=== PATIENT | male | born 1975 | race Caucasian/White ===

== ENCOUNTER 2019-03-04 14:23 | Inpatient (IN) | payer OTHER ==
[~2019-03-04] VITALS: Ht 177.8 cm; Wt 90.1 kg
[~2019-03-04 14:23] MED LIST: HYDROXYZINE PAM50 MG PO; NEURONTIN600 MG PO; ONDANSETRON HYDR4 M1 PO; QUETIAPINE FUMA25 M1 PO; SINEMET 25-100M1 TAB PO; ZOLOFT50 MG PO
[2019-03-04] MEDS ORDERED: GABAPENTIN800 MG PO (14:38)
[2019-03-04] MEDS ORDERED: SERTRALINE HYD100 MG PO (14:38)
[2019-03-04 15:50] VITALS: BP 141/78
--- NOTE | 2019-03-04 15:50 | NUR ---
43 year old MALE admitted to room # 526-1 for stabilization. 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 Compliant with admission procedure. Patient c/o anxiety, is unable to sit still, fidgity, restless and experiencing tremors during interview. See assessment forms for additional information about patient status.
--- NOTE | 2019-03-04 15:59 | NUR ---
PATIENT MEETS [facility]. CINA=16, CIWA=19. PATIENT WANTS TO FOLLOW UP WITH RESIDENTIAL TREATMENT AT ON LICENSE OF [facility] FOR HIS AFTERCARE PLAN. KANE LOPEZ B.A. GREENSKEEPER
[2019-03-04 16:00] VITALS: BP 125/79
[2019-03-04 16:14] LABS: BASO % 0.1 % (0.0-1.0); EOS # 0.2 10*3/uL (0.0-0.4); EOS % 1.8 % (1.0-4.0); HEMATOCRIT 43.3 % (42.0-52.0); HEMOGLOBIN 15.1 g/dl (14.0-18.0); LYMPH # 3.8 10*3/uL (1.3-4.4); LYMPH % 37.5 % (27.0-41.0); MEAN CELL VOLUME 92.1 fl (80.0-94.0); MEAN CORPUSCULAR HGB 32.1 pg (27.0-31.0); MEAN CORPUSCULAR HGB CONC 34.9 g/dl (33.0-37.0); MEAN PLATELET VOLUME 8.9 fl (9.6-12.3); MONO # 0.6 10*3/uL (0.1-1.0); MONO % 5.6 % (3.0-9.0); NEUT # 5.5 10*3/uL (2.3-7.9); NEUT % 54.7 % (47.0-73.0); PLATELET COUNT AUTOMATED 293 10*3/uL (130-400); RED CELL DISTRI WIDTH 13.1 % (0-14.5)
[2019-03-04 16:28] LABS: BILIRUBIN NEGATIVE (NEGATIVE); BLOOD NEGATIVE (NEGATIVE); CLARITY CLEAR (CLEAR); COLOR YELLOW (YELLOW); GLUCOSE NEGATIVE (NEGATIVE); KETONE NEGATIVE (NEGATIVE); LEUKO ESTERASE NEGATIVE (NEGATIVE); NITRITE NEGATIVE (NEGATIVE); PH 5.5 (5.0-9.0); SPECIFIC GRAVITY <= 1.005 (1.005-1.030); UROBILINOGEN 0.2 E.U./dl (0.2-1.0)
[2019-03-04 16:29] LABS: ALBUMIN 3.6 gm/dl (3.1-4.5); ALKALINE PHOSPHATASE 63 U/L (45-117); BUN 8 mg/dl (7-24); CHLORIDE 110 mmol/L (98-107); CREATININE 0.91 mg/dL (0.70-1.30); POTASSIUM 3.6 mmol/L (3.5-5.1); SGOT/AST 25 IU/L (3-35); SGPT/ALT 52 U/L (12-78); SODIUM 144 mmol/L (136-145); TOTAL PROTEIN 7.4 gm/dL (6.4-8.2)
[2019-03-04 16:32] LABS: ETHYL ALCOHOL < 3.0 mg/dl (<3); INTERNATIONAL NORM RATIO 0.8 (2.0-3.5)
[2019-03-04 16:37] LABS: EPITHELIAL CELLS 0-2
--- NOTE | 2019-03-04 16:45 | NUR ---
MEDICATED WITH PRN IV ATIVAN FOR TREMORS/ANXIETY, BENTYL AND ZOFRAN FOR ABDOMINAL CRAMPS AND NAUSEA, TYLENOL AND ROBAXIN FOR BODY ACHES AND MUSCLE CRAMPS, AND REQUIP FOR RESTLESS LEGS.
--- NOTE | 2019-03-04 17:35 | NUR ---
ADMINISTERED SCHEDULED LIBRIUM AND SUBUTEX FOR WITHDRAWAL SYMPTOMS, APPLIED NICOTINE PATCH FOR SMOKING CRAVINGS. ATIVAN, BENTYL, ZOFRAN, TYLENOL AND ROBAXIN, GIVEN EARLIER EFFECTIVE, LEGS REMAIN RESTLESS, REQUIP NOT EFFECTIVE.
[2019-03-04 20:00] VITALS: BP 129/83; BP 130/80
--- NOTE | 2019-03-04 21:02 | NUR ---
PATIENT C/O ANXIETY. TREMORS VISUALIZED AND PATIENT RESTLESS AND C/O BODY ACHES. VISTARIL AND TYLENOL ADMINISTERED PRESCRIBED. WILL MONITOR FOR EFFECTIVENESS.
--- NOTE | 2019-03-04 22:02 | NUR ---
PATIENT STILL C/O RESTLESSNESS, ANXIETY, AND BOSY ACHES. ROBAXIN, ATIVAN, AND BENTYL ADMINISTERED PRESCRIBED. WILL MONITOR FOR EFFECTIVENESS.
[2019-03-05] VITALS: BP 104/58
--- NOTE | 2019-03-05 02:19 | NUR ---
DR APPIAH CALLED AND MADE AWARE THAT A URINE DRUG WAS NOT SENT ON PATIENT ON ADMISSION AND PATIENT HAS ALREADY RECEIVED SUBUTEX AND LIBRIUM. NO NEW ORDERS RECEIVED.
--- NOTE | 2019-03-05 06:23 | NUR ---
MEDICATED WITH ROBAXIN, REQUIP AND VISTARIL PER PRN ORDER, SEE EMAR. FOR ANXIETY, RESTLESS LEGS AND MUSCLE ACHES. CALL LIGHT IN REACH.
--- NOTE | 2019-03-05 06:32 | NUR ---
PT REQUESTING ATIVAN, PT ANXIUOS AND SMALL TREMORS NOTED. MEDICATED WITH ATIVAN IV PER PRN ORDER, SEE EMAR. CALL LIGHT IN REACH.
[2019-03-05 12:00] VITALS: BP 112/77
[2019-03-05 14:42] LABS: URINE AMPHETAMINES < 1000 (1000ng/ml); URINE BARBITURATES < 200 (200ng/ml); URINE BENZODIAZEPINES > 200 (200ng/ml); URINE CANNABINOIDS (THC) < 50 (50ng/ml); URINE COCAINE < 300 (300ng/ml); URINE METHADONE < 300 (300ng/ml); URINE OPIATES < 300 (300ng/ml)
[2019-03-05 14:45] LABS: URINE PHENCYCLIDINE < 25 (25ng/ml)
--- NOTE | 2019-03-05 15:00 | NUR ---
ASSUMED CARE FOR THIS PT AT THIS TIME. NO C/O VOICED. CALL LIGHT IN REACH.
[2019-03-05 16:00] VITALS: BP 118/79
--- NOTE | 2019-03-05 16:22 | NUR ---
PATIENT WANTS TO FOLLOW UP WITH [facility] FOR INPATIENT TREATMENT. [facility] STAFF SENT ASSESSMENT TO FACILITY AND WAITING FOR APPROVAL AND BED AVAILABILITY. Manolo RANDOLPH A, SUSPECT ARTIST
--- NOTE | 2019-03-05 17:47 | NUR ---
PT VISIBLY SHAKING, VERY RESTLESS, C/O MUSCLE ACHES, AND RLS. MEDICATED W/PRN MEDS AT THIS TIME. WILL MONITOR FOR EFFECTIVENESS.
[2019-03-05 20:00] VITALS: BP 124/78
--- NOTE | 2019-03-05 23:22 | NUR ---
PATIENT ANXIOUS AND RESTLESS. MEDICATED WITH ATIVAN AND ROBAXIN PRESCRIBED.WILL MONITOR FOR EFFECTIVENESS.
[2019-03-06] VITALS: BP 128/74
--- NOTE | 2019-03-06 00:22 | NUR ---
PATIENT RESTING WITH EYES CLOSED. RESPIRATIONS EASY AND UNLABORED. CALL LIGHT WITHIN REACH.
--- NOTE | 2019-03-06 01:22 | NUR ---
24 HR chart check completed.
--- NOTE | 2019-03-06 02:20 | NUR ---
PATIENT RESTING WITH EYES CLOSED. RESPIRATIONS EASY AND UNLABORED.NO DISTRESS NOTED.TWITCHING OBSERVED DURING SLEEP. CALL LIGHT WITHIN REACH. WILL MONITOR.
--- NOTE | 2019-03-06 04:20 | NUR ---
IV started right forearm with #22 protective cath after 1 attempts. Site prepped with Chloroprep. Sterile dressing applied. Patient tolerated procedure well. MUSHTAQ CABRERA
--- NOTE | 2019-03-06 04:20 | NUR ---
IV NOT FLUSHING IN LEFT ARM. DISCONTINUED.
[2019-03-06 08:00] VITALS: BP 126/68
--- NOTE | 2019-03-06 10:33 | NUR ---
PT REQUESTED AND WAS MEDICATED WITH ATIVAN FOR C/O ANXIETY/RESTLESSNESS. CALL LIGHT IN REACH. WILL MONITOR.
--- NOTE | 2019-03-06 11:30 | NUR ---
PT STATES MEDICATION SOMEWHAT EFFECTIVE. PT WONDERING IN HALLS AND FREQUENTLY STOPPING AT THE NURSES STATION. WILL MONITOR
--- NOTE | 2019-03-06 11:55 | NUR ---
PT REQUESTED AND WAS MEDICATED WITH ROBAXIN AND BENTYL FOR C/O MUSCLE ACHES AND STOMACH CRAMPING. WILL MONITOR
[2019-03-06 12:00] VITALS: BP 121/64
--- NOTE | 2019-03-06 13:00 | NUR ---
Patient resting. Responding to PRN medications with fewer complaints. call light in reach. will monitor
--- NOTE | 2019-03-06 13:50 | NUR ---
pt requested and was medicated with Vistiril for c/o anxiety. call light in [facility]. will monitor
--- NOTE | 2019-03-06 15:07 | NUR ---
PATIENT IS ACCEPTED TO [facility] FOR RESIDENTIAL TREATMENT. THEY HAVE A BED AVAILABLE FOR HIM ON AT 1:00PM. PATIENT REPORTS THAT HE HAS TRANSPORTATION TO FACILITY. KANE LOPEZ B.A. EMPLOYMENT MANAGER
[2019-03-06 16:00] VITALS: BP 122/90
--- NOTE | 2019-03-06 16:14 | NUR ---
PT MEDICATED WITH ATIVAN FOR C/O ANXIETY AND RESTLESSNESS. CALL LIGHT IN REACH. WILL MONITOR
--- NOTE | 2019-03-06 16:30 | NUR ---
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 HR LOW 100'S PER 4PM VITALS. HE STATES TO KEEP MONITORING HEART RATE AND KEEP ASKING TO REAPPLY MONITOR.
[2019-03-06 20:00] VITALS: BP 124/88
--- NOTE | 2019-03-06 20:00 | NUR ---
AMBULATING HALLWAY. STAGGERS OCCASIONALLY. REORIENTED AND ENCOURAGED TO RETURN TO ROOM. WILL MONITOR
--- NOTE | 2019-03-06 21:09 | NUR ---
Patient displaying withdrawal symptoms, including: irritability, anxiousness, restlessness and agitation, complicated by impulsive behavior. Scheduled/PRN medications provided, SEE EMAR. Will continue to monitor medication effectiveness.
--- NOTE | 2019-03-06 22:00 | NUR ---
Patient resting. Responding to scheduled medications with fewer complaints of pain and anxiety.
--- NOTE | 2019-03-06 22:58 | NUR ---
MEDICATED WITH ATIVAN IV PER PRN ORDER FOR ANXIETY/RESTLESSNESS. CALL LIGHT IN REACH.
--- NOTE | 2019-03-06 23:39 | NUR ---
24 HR chart check completed.
[2019-03-07] VITALS: BP 118/73
--- NOTE | 2019-03-07 01:19 | NUR ---
Patient displaying withdrawal symptoms, including: irritability, anxiousness, restlessness and agitation, complicated by impulsive behavior. Will continue to monitor medication effectiveness.
--- NOTE | 2019-03-07 03:00 | NUR ---
Patient SLEEPING. Responding to scheduled medications with fewer complaints of pain and anxiety.
--- NOTE | 2019-03-07 06:30 | NUR ---
REQUESTED AND RECEIVED NORCO PER PRN ORDER FOR COMPLAINTS OF RIGHT HIP PAIN RATING A 5. IV FLUIDS MAINTAINED. CALL LIGHT WITHIN REACH. WILL MONITOR FOR EFFECTIVENESS
[2019-03-07 08:00] VITALS: BP 133/80
--- NOTE | 2019-03-07 10:00 | NUR ---
DR RAMIREZ NOTIFIED PT STILL REFUSING TO WEAR EFFICIENCY MINER BLASTING
--- NOTE | 2019-03-07 10:26 | NUR ---
PATIENT COMPLAINED OF FEELING ANXIOUS. VISTARIL GIVEN PER PATIENT REQUEST. WILL MONITOR FOR EFFECTIVENESS.
--- NOTE | 2019-03-07 11:48 | NUR ---
PATIENT STATED THAT VISTARIL WAS NOT EFFECTIVE. STILL C/O ANXIETY. ORDERED ATIVAN.
[2019-03-07 12:00] VITALS: BP 139/88
--- NOTE | 2019-03-07 14:36 | NUR ---
PATIENT IS GOING TO [facility]. [facility]SPORTATION FOR HIM THROUGH HIS INSURANCE. PATIENT AGREES AND UNDERSTANDS HIS AFTERCARE PLAN. KANE LOPEZ B.A. COVERSTITCH ELASTIC ATTACHER
[2019-03-07] MEDS ORDERED: ATARAX,VISTARIL50 MG PO (14:44)
[2019-03-07] MEDS ORDERED: ROPINIROLE HYD0.5 MG PO (14:44)
[2019-03-07] MEDS ORDERED: METHOCARBAMOL750 M1 PO (14:44)
--- NOTE | 2019-03-07 14:57 | NUR ---
Discharge instructions reviewed with patient/family. Patient receptive and verbalizes understanding. Follow-up care arranged. Written instructions given to patient/family. KLEBER TRUONG
== END 2019-03-07 14:57 | disposition home or self-care (01) | DRG 773 ==
LOC: 5E 14:23
PROVIDERS: Registered Nurse; ADMIT Internal Medicine
DX: F11.23 Opioid dependence with withdrawal (principal); E44.0 Moderate protein-calorie malnutrition; F10.239 Alcohol dependence with withdrawal, unspecified; F32.9 Major depressive disorder, single episode, unspecified; B19.20 Unspecified viral hepatitis C without hepatic coma; G62.9 Polyneuropathy, unspecified; F41.9 Anxiety disorder, unspecified; Z87.891 Personal history of nicotine dependence; Z79.899 Other long term (current) drug therapy; Z71.6 Tobacco abuse counseling; Z68.28 Body mass index [BMI] 28.0-28.9, adult

== ENCOUNTER 2020-01-20 10:08 | Inpatient (IN) | payer OTHER ==
[~2020-01-20] VITALS: Ht 177.8 cm; Wt 96.8 kg
[~2020-01-20 10:08] MED LIST changes: +ATARAX,VISTARIL50 MG PO; +GABAPENTIN800 MG PO; +METHOCARBAMOL750 M1 PO; +ROPINIROLE HYD0.5 MG PO; +SERTRALINE HYD100 MG PO
[2020-01-20 10:16] VITALS: BP 110/68
[2020-01-20 10:47] LABS: BASO % 0.2 % (0.0-1.0); EOS # 0.3 10*3/uL (0.0-0.4); EOS % 2.7 % (1.0-4.0); LYMPH # 4.6 10*3/uL (1.3-4.4); LYMPH % 47.6 % (27.0-41.0); MEAN CELL VOLUME 91.5 fl (80.0-94.0); MEAN CORPUSCULAR HGB 31.6 pg (27.0-31.0); MEAN CORPUSCULAR HGB CONC 34.5 g/dl (33.0-37.0); MONO # 0.8 10*3/uL (0.1-1.0); MONO % 8.3 % (3.0-9.0); NEUT # 3.9 10*3/uL (2.3-7.9); NEUT % 41.1 % (47.0-73.0); PLATELET COUNT AUTOMATED 263 10*3/uL (130-400); RED BLOOD COUNT 4.81 10*6/uL (4.50-5.90); RED CELL DISTRI WIDTH 12.9 % (0-14.5); WHITE BLOOD COUNT 9.6 10*3/uL (4.8-10.8)
[2020-01-20 11:01] LABS: ALBUMIN 3.8 gm/dl (3.1-4.5); ALKALINE PHOSPHATASE 80 U/L (45-117); BUN 14 mg/dl (7-24); CHLORIDE 104 mmol/L (98-107); CREATININE 1.05 mg/dL (0.70-1.30); SGOT/AST 24 IU/L (3-35); SGPT/ALT 43 U/L (12-78); SODIUM 137 mmol/L (136-145); TOTAL PROTEIN 7.7 gm/dL (6.4-8.2)
[2020-01-20 11:03] LABS: ACETAMINOPHEN (TYLENOL) < 5.0 ug/ml (10-30)
--- NOTE | 2020-01-20 11:15 | NUR ---
REPORT TO MONIQUE HOLM, NO BED ASSIGNMENT AT PRESENT
--- NOTE | 2020-01-20 11:18 | NUR ---
REPORT TO MONIQUE HOLM
[2020-01-20 11:45] LABS: BILIRUBIN NEGATIVE (NEGATIVE); BLOOD NEGATIVE (NEGATIVE); CLARITY CLEAR (CLEAR); COLOR YELLOW (YELLOW); GLUCOSE NEGATIVE (NEGATIVE); KETONE NEGATIVE (NEGATIVE); LEUKO ESTERASE NEGATIVE (NEGATIVE); NITRITE NEGATIVE (NEGATIVE); SPECIFIC GRAVITY 1.025 (1.005-1.030); UROBILINOGEN 0.2 E.U./dl (0.2-1.0)
--- NOTE | 2020-01-20 11:45 | NUR ---
A 44, admitted to , under the services of LUIS MANUEL Rizvi DO with a diagnosis of POLYSUBSTANCE ABUSE. Chief complaint is ALCOHOL,HEROIN, COCAINE, AND BENZODIAZEPINE ABUSE. Patient arrived via wheel chair from ER. Monitor applied. Initial assessment completed. Vital signs taken and recorded. LUIS MANUEL RIZVI DO notified of admission to the unit. Orders received. See assessment for past medical history, medications and allergies. Patient and/or family oriented to unit. [facility] visitation policy reviewed. Clothing/patient valuable form completed. LOVE BRAN
[2020-01-20 11:51] LABS: URINE AMPHETAMINES < 1000 (1000ng/ml); URINE BARBITURATES < 200 (200ng/ml); URINE BENZODIAZEPINES > 200 (200ng/ml); URINE CANNABINOIDS (THC) < 50 (50ng/ml); URINE COCAINE > 300 (300ng/ml); URINE METHADONE < 300 (300ng/ml); URINE OPIATES > 300 (300ng/ml); URINE PHENCYCLIDINE < 25 (25ng/ml)
[2020-01-20 11:57] LABS: WBC 0-2 wbc/hpf (0-5)
[2020-01-20 12:02] LABS: INTERNATIONAL NORM RATIO 0.9 (2.0-3.5)
[2020-01-20 12:08] VITALS: BP 117/68
--- NOTE | 2020-01-20 15:28 | NUR ---
PATIENT MEETS [facility]. PATIENT IS WANTING TO FOLLOW UP WITH [facility] FOR OUTPATIENT TREATMENT. KANE LOPEZ B.A. BUSINESS DATA ANALYST
[2020-01-20 16:00] VITALS: BP 111/84
[2020-01-20 20:00] VITALS: BP 111/84
--- NOTE | 2020-01-20 22:25 | NUR ---
PT. GIVEN ATIVAN ORDERED AT 2017. CURRENTLY SLEEPING, ATIVAN EFFECTIVE
--- NOTE | 2020-01-20 23:12 | NUR ---
BENTYL, ROBAXIN AND DESYREL GIVEN ORDERED FOR STOMACH CRAMPS, MUSCLE ACHES AND INABILITY TO SLEEP AT 2310.
--- NOTE | 2020-01-20 23:55 | NUR ---
PT SLEEPING, BENTYL, ROBAXIN AND DESYREL EFFECTIVE. AMADO DELACRUZ RN
[2020-01-21] VITALS: BP 130/67
--- NOTE | 2020-01-21 04:40 | NUR ---
PT. GIVEN BENTYL AND ROBAXIN FOR [place] CRAMPS AND MUSCLE DISCOMFORT. PREVIOUS DOSE EFFECTIVE. AMADO DELACRUZ RN
[2020-01-21 07:33] LABS: BASO % 0.3 % (0.0-1.0); EOS # 0.3 10*3/uL (0.0-0.4); EOS % 4.1 % (1.0-4.0); LYMPH # 3.9 10*3/uL (1.3-4.4); LYMPH % 54.5 % (27.0-41.0); MEAN CELL VOLUME 90.3 fl (80.0-94.0); MEAN CORPUSCULAR HGB 31.2 pg (27.0-31.0); MEAN CORPUSCULAR HGB CONC 34.5 g/dl (33.0-37.0); MEAN PLATELET VOLUME 9.2 fl (9.6-12.3); MONO # 0.6 10*3/uL (0.1-1.0); MONO % 8.2 % (3.0-9.0); NEUT # 2.3 10*3/uL (2.3-7.9); NEUT % 32.8 % (47.0-73.0); PLATELET COUNT AUTOMATED 230 10*3/uL (130-400); RED BLOOD COUNT 4.87 10*6/uL (4.50-5.90); RED CELL DISTRI WIDTH 12.8 % (0-14.5); WHITE BLOOD COUNT 7.1 10*3/uL (4.8-10.8)
[2020-01-21 07:47] LABS: ALBUMIN 3.1 gm/dl (3.1-4.5); ALKALINE PHOSPHATASE 71 U/L (45-117); BUN 14 mg/dl (7-24); CHLORIDE 111 mmol/L (98-107); CREATININE 0.99 mg/dL (0.70-1.30); SGOT/AST 20 IU/L (3-35); SGPT/ALT 38 U/L (12-78); SODIUM 141 mmol/L (136-145); TOTAL PROTEIN 6.9 gm/dL (6.4-8.2)
[2020-01-21 08:00] VITALS: BP 126/76
[2020-01-21 16:00] VITALS: BP 120/65
--- NOTE | 2020-01-21 16:47 | NUR ---
[facility] STAFF IN TO SEE PATIENT. PATIENT'S AFTERCARE REMAINS THE SAME. KANE LOPEZ B.A. FINAL FINISHER
--- NOTE | 2020-01-21 19:20 | NUR ---
ASSESSMENT COMPLETE AT THIS TIME. PT STATES THAT HE IS FEELING ANXIOUS, OTHER THAN THAT HAS NO WITHDRAWALS. RESPIRATIONS ARE REGULAR AND RELAXED. CALL LIGHT WITHIN REACH, WILL CONTINUE TO MONITOR
[2020-01-21 20:00] VITALS: BP 109/84
--- NOTE | 2020-01-21 23:23 | NUR ---
PRN TRAZODONE PO GIVEN FOR COMPLAINTS OF NOT BEING ABLE TO FALL ASLEEP. WILL CONTINUE TO MONITOR FOR EFFECTIVENESS
[2020-01-21 23:33] VITALS: BP 124/78
--- NOTE | 2020-01-21 23:34 | NUR ---
NEURONTIN FELL ON GROUND, SO WASTED THE MEDICATION AND PULLED THE PILL AGAIN. PT SUCCESSFULLY TOOK HIS NEURONTIN. CALL LIGHT WITHIN REACH, WILL CONTINUE TO MONITOR
--- NOTE | 2020-01-22 00:15 | NUR ---
PT SLEEPING, TRAZODONE EFFECTIVE. WILL CONTINUE TO MONITOR
--- NOTE | 2020-01-22 04:00 | NUR ---
Patient sleeping. Respirations relaxed and easy. Celestines KANE Hardy
--- NOTE | 2020-01-22 07:00 | NUR ---
ARRIVED ON SHIT, RECEIVED REPORT FROM OFFGOING NURSE, ASSUMED CARE OF PATIENT.
--- NOTE | 2020-01-22 07:20 | NUR ---
INTROCED SELF TO PATIENT, BED IN LOW POSITION, WHEEL LOCKS ENGAGED, SIDE RAILS UP X 2 FOR TURNING AND REPOSITIONING, CALL LIGHT WITHIN REACH, NO NEEDS VOICED ATB THIA TIME, WHITE BOARD UPDATED.
[2020-01-22 08:00] VITALS: BP 143/90
--- NOTE | 2020-01-22 10:18 | NUR ---
PER DR. FITZGERALD REQUEST 1MG ATIVAN GIVE FOR UNCONTROLLED ANXIETY.
--- NOTE | 2020-01-22 11:14 | NUR ---
PATIENT, UP PACING AROUND ROOM AND IN [place]OSTER, LORAZEPAM INEFFECTIVE. DR RADER
[2020-01-22 12:00] VITALS: BP 158/98
--- NOTE | 2020-01-22 13:04 | NUR ---
[facility] STAFF IN TO SEE PATIENT. PATIENT IS GOING TO FOLLOW UP WITH [facility] FOR HIS AFTERCARE PLAN. PATIENT AGREES AND UNDERSTANDS HIS AFTERCARE PLAN. KANE LOPEZ B.A. INTAKE COORDIANTOR
--- NOTE | 2020-01-22 13:17 | NUR ---
PATIENT REMAINS AGGITATED MEDICATED WITH LORAZEPAM 1MG ORDERED EVERY 15 MINUTES FOR SEVER ANXIETY. ENCOURAGED PATIENT TO TURN DOWN LIGHTS IN ROOM, TURN OFF TV AND TRY TO CLOSE EYES. VERSED UNDERSTANDING.
--- NOTE | 2020-01-22 13:54 | NUR ---
WENT INTO PATIENTS ROOM HE IS RESTING QUIETLY WITH EYES CLOSED, RESPIRATIONS EVEN AND NON LABORED.
--- NOTE | 2020-01-22 14:14 | NUR ---
PATIENT JUST WOKE UP AND REPORTED FEELING VERY ANXIOUS MEDICATED WITH ATIVAN ORDERED IV PUSH, PATIENT REQUESTED SOMETHING THAT WOULD JUST KNOCK ME OUT, ADVISED THAT IS NOT HOW THE PROGRAM WORKS.
--- NOTE | 2020-01-22 14:20 | NUR ---
CALL PLACED TO HOSPITALIST LINE, REVIEWED THE AMOUNT OF LORAZEPAM GIVEN THUS FAR TODAY, SPOKE WITH DR. MONCADA, SHE VERSED TO CONTINUE GIVING ORDERED WHICH IS CURRENTLY Q15 MINUTES PRN
--- NOTE | 2020-01-22 15:05 | NUR ---
WENT IN TO PATIENTS ROOM, REVIEWED POLICY OF NEED TO REMOVE CLOTHING AND ALL PERSONAL ITEMS EXCEPT CLOTHING, HE WAS AGREEABLE, TOOK IN GOWN TO PATIENT, HE PUT GOWN OVER HIS CLOTHES, I ADVISED THAT I COULD BRING HIM A SECOND GOWN AND HE COULD PUT THAT ON WELL, BUT HE WOULD NEED TO REMOVE HIS OTHER CLOTHING EXCEPT UNDERWEAR. HE VERSED HE WAS JUST GOING TO LEAVE THEN, REVIEWED [place] form, and inventory sheet, REMOVED IV, PATIENT ESCORTED OUT BY HOSPITAL SECURITY. DR. ORDONEZ NOTIFIED OF PATIENT LEAVING NOTED ABOVE.
--- NOTE | 2020-01-22 15:11 | NUR ---
DR. MONCADA THAT PATIENT LEFT AMA. REVIEWED WHAT TRANSPIRED WITH PATIENT, NOTIFIED LUIS MANUEL Main RN
== END 2020-01-22 15:52 | disposition left against medical advice (07) | DRG 770 ==
LOC: ED 10:08 → 4E 11:03 → EDHOLD 11:03 → 4E 11:47 → EDHOLD 11:47 → 4E 01-22 10:11
PROVIDERS: Hospitalist; Nurse Practitioner Family; ADMIT Family Medicine
DX: F19.230 Other psychoactive substance dependence with withdrawal, uncomplicated (principal); F32.9 Major depressive disorder, single episode, unspecified; B19.20 Unspecified viral hepatitis C without hepatic coma; G62.9 Polyneuropathy, unspecified; F41.9 Anxiety disorder, unspecified; F14.10 Cocaine abuse, uncomplicated; F10.230 Alcohol dependence with withdrawal, uncomplicated; F11.23 Opioid dependence with withdrawal; F13.230 Sedative, hypnotic or anxiolytic dependence with withdrawal, uncomplicated; F17.210 Nicotine dependence, cigarettes, uncomplicated; Z53.29 Procedure and treatment not carried out because of patient's decision for other reasons; Y90.9 Presence of alcohol in blood, level not specified; Z71.6 Tobacco abuse counseling; Z88.6 Allergy status to analgesic agent; Z79.899 Other long term (current) drug therapy